=== PATIENT | female | born 1975 | race African-American/Black ===

== ENCOUNTER 2025-01-26 20:10 | Emergency (ER) | payer SELFPAY ==
[~2025-01-26] VITALS: Ht 162.6 cm; Wt 72.0 kg
[2025-01-26 20:31] VITALS: O2SAT 98
[2025-01-26] MEDS: ACETAMINOPHEN 500MG TABLET PO ONE (23:46)
[2025-01-26] MEDS: LIDOCAINE 5% PATCH TOP SCH (23:46)
[2025-01-27] MEDS ORDERED: NAPR-1176 MT (00:22)
[2025-01-27] MEDS ORDERED: LIDO-53 TP (00:22)
[2025-01-27 00:42] VITALS: BP 133/82; PULSE 83; RESP 18; TEMP 36.9; O2SAT 99
== END 2025-01-27 00:42 | disposition home or self-care (01) ==
LOC: ER 20:10
DX: M54.2 Cervicalgia (principal); M54.9 Dorsalgia, unspecified; Z86.73 Personal history of transient ischemic attack (TIA), and cerebral infarction without residual deficits; Z98.890 Other specified postprocedural states
CPT/HCPCS: 71045; 99283